=== PATIENT | male | born 1960 | race Caucasian/White ===

== ENCOUNTER 2024-08-16 08:02 | Inpatient (IN) | payer BC, OTHER ==
[~2024-08-16] VITALS: Ht 185.4 cm; Wt 113.9 kg
--- NOTE | 2024-08-16 08:09 | ECG ---
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
--- NOTE | 2024-08-16 08:22 | ED.PDOC ---
History of Present Illness HPI Comments 63-year-old male with no reported PMHx presents with a chief complaint of chest pain x onset last night. Patient states that his pain is localized to his left chest, nonradiating, describes as heaviness/pressure, and is intermittent in timing. Patient mentions that he had pressure last night, but that it went away on its own and he was able to sleep. Patient mentions that while on his way down the [place] the chest pressure began again and was more intense than last night. Patients advised patient to be checked out and patient arrived to the ER. No other symptoms or modifying factors present at this time. Chief Complaint: Chest Pain Time Seen by MD: 08:11 Reviewed Notes: Medications, Allergies Allergies: Coded Allergies: Avocado (Verified Allergy, Unknown, 08/16/24) Information Source: Patient Mode of Arrival: Ambulatory Severity: Moderate Timing: Hours Duration: Since onset Prehospital treatment: None Past Medical History PAST MEDICAL HISTORY: Denies Surgical History (Other): KNEE REPLACEMENT Family History Family History: Reviewed,noncontributory to illness Social History Smoker: Non-Smoker Alcohol: Denies ETOH Use Drugs: Denies Drug Use Lives In: Home Constitutional: denies: chills, diaphoresis, fatigue, fever, malaise, sweats, weakness, others EENTM: denies: blurred vision, double vision, ear bleeding, ear discharge, ear drainage, ear pain, ear ringing, eye pain, eye redness, hearing loss, mouth pain, mouth swelling, nasal discharge, nose bleeding, nose congestion, nose pa in, photophobia, tearing, throat pain, throat swelling, voice changes, others Respiratory: denies: cough, hemoptysis, orthopnea, SOB at rest, shortness of breath, SOB with excertion, stridor, wheezing, others Cardiovascular: reports: chest pain, irregular heart beat; denies: dizzy spells, diaphoresis, Dyspnea on exertion, edema, left arm pain, lightheadedness, palpitations, PND, syncope, others Gastrointestinal: denies: abdomen distended, abdominal pain, blood streaked bowels, constipated, diarrhea, dysphagia, difficulty swallowing, hematemesis, melena, nausea, poor appetite, poor fluid intake, rectal bleeding, rectal pain, vomiting, others Genitourinary: denies: burning, dysuria, flank pain, frequency, hematuria, incontinence, penile discharge, penile sore, pain, testicle pain, testicle swelling, urgency, others Neurological: denies: dizziness, fainting, headache, left sided numbness, left sided weakness, numbness, paresthesia, pre-existing deficit, right sided numbness, right sided weakness, seizure, speech problems, tingling, tremors, weakness, others Musculoskeletal: denies: back pain, gout, joint pain, joint swelling, muscle pain, muscle stiffness, neck pain, others Integumetry: denies: bruises, change in color, change in hair/nails, dryness, laceration, lesions, lumps, rash, wounds, others Allergic/Immunocompromised: denies: Difficulty Healing, Frequent Infections, Hives, Itching, others Hematologic/Lymphatic: denies: anemia, blood clots, easy bleeding, easy bruising, swollen glands, others Endocrine: denies: excessive hunger, excessive sweating, excessive thirst, excessive urination, flushing, intolerance to cold, intolerance to heat, unexplained weight gain, unexplained weight loss, others Psychiatric: denies: anxiety, bipolar disorder, depression, hopeless, panic disorder, schizophrenia, sleepless, suicidal, others All Other Systems: Reviewed and Negative Physical Exam General Appearance: Moderate Distress, Normal HEENT: Normal ENT Inspection, Pharynx Normal, TMs Normal Neck: Full Range of Motion, Non-Tender, Normal, Normal Inspection Respiratory: Chest Non-Tender, Lungs Clear, No Accessory Muscle Use, No Re spiratory Distress, Normal Breath Sounds Cardiovascular: No Edema, No JVD, No Murmur, No Gallop, Normal Peripheral Pulses, Tachycardia Breast Exam: Deferred Gastrointestinal: No Organomegaly, Non Tender, No Pulsatile Mass, Normal Bowel Sounds, Soft Genitalia: Deferred Pelvic: Deferred Rectal: Deferred Extremities: No calf tenderness, Normal capillary refill, Normal inspection, Normal range of motion, Non-tender, No pedal edema Musculoskeletal : Apperance: Normal Neurologic: Alert, duct layer helper II-XII nml as Tested, No Motor Deficits, Normal Affect, Normal Mood, No Sensory Deficits Cerebellar Function: NOT DONE Reflexes: NOT DONE Skin: Dry, Normal Color, Warm Peripheral Pulses: 3+ Radial (R), 3+ Radial (L) Lymphatic: No Adenopathy Was a procedure done? Was a procedure done?: No EKG EKG : Pulse Rate (adult): 160 [place]: Normal Cardiac Rhythm: ST Block: None Hypertrophy: None ST: Normal Differential Dx Considerations may include: Coronary artery disease Electrolyte imbalance X-Ray, Labs, Meds, VS Vital Signs Date Time Temp Pulse Resp B/P (MAP) Pulse Ox O2 Delivery O2 Flow Rate FiO2 08/16/24 08:22 160 08/16/24 08:08 160 08/16/24 08:05 97.9 160 22 183/116 (138) 98 97.9 161/122 (135) Lab Test 08/16/24 08:10 Range/Units White Blood Count 7.9 4.4-10.8 10^3/uL Red Blood Count 5.41 4.5-5.90 10^6/uL Hemoglobin 17.0 13.5-17.5 g/dL Hematocrit 48.6 41.0-53.0 % Mean Corpuscular Volume 90.0 80.0-100.0 fL Mean Corpuscular Hemoglobin 31.4 28.0-32.0 pg Mean Corpuscular Hemoglobin Concent 34.9 32.0-36.0 g/dL Red Cell Distribution Width 13.6 11.8-14.3 % Platelet Count 195 140-450 10^3/uL Mean Platelet Volume 7.4 6.9-10.8 fL Neutrophils (%) (Auto) 66.9 37.0-80.0 % Lymphocytes (%) (Auto) 19.3 10.0-50.0 % Monocytes (%) (Auto) 6.6 0.0-12.0 % Eosinophils (%) (Auto) 5.9 0.0-7.0 % Basophils (%) (Auto) 1.3 0.0-2.0 % Neutrophils # (Auto) 5.3 1.6-8.6 10 ^3/uL Lymphocytes # (Auto) 1.5 0.4-5.4 10 ^3/uL Monocytes # (Auto) 0.5 0-1.3 10 ^3/uL Eosinophils # (Auto) 0.5 0-0.8 10 ^3/uL Basophils # (Auto) 0.1 0-0.2 10 ^3/uL Nucleated Red Blood Cells 0.1 % Sodium Level 142 136-145 mmol/L Potassium Level 4.2 3.5-5.1 mmol/L Chloride Level 108 H 98-107 mmol/L Carbon Dioxide Level 24 20-31 mmol/L Anion Gap 10 5-15 Blood Urea Nitrogen 16 9-23 mg/dL Creatinine 1.25 0.700-1.30 mg/dL Glomerular Filtration Rate Calc 66 >90 mL/min BUN/Creatinine Ratio 12.8 10.0-20.0 Serum Glucose 111 H 74-106 mg/dL Calcium Level 11.3 H 8.7-10.4 mg/dL Troponin I High Sensitivity 8 </=54 ng/L Current Medications Medications (Trade) Dose Ordered Sig/Katerin Route Start Time Stop Time Status Last Admin Aspirin 325 mg ONCE ONCE PO 08/16/24 08:30 08/16/24 08:31 DC 08/16/24 08:59 Adenosine (Adenosine) 6 mg ONCE ONCE IV 08/16/24 08:30 08/16/24 08:31 DC 08/16/24 08:35 Amiodarone HCl 100 ml @ 600 mls/hr ONCE ONCE IV 08/16/24 08:45 08/16/24 08:54 DC 08/16/24 08:49 Patient alert. Complaining of chest discomfort. EKG does show tachycardia. Answering questions. Blood pressure elevated. Does not take any medications. WBC within normal limits. Hemoglobin within normal limits. Was given labetalol. When adenosine was given his underlying rhythm was a flutter. Started amiodarone. Explained to the patient about his heart condition. Echocardiogram. Cardiology consultation. Continue cardiac monitoring. Time of 1ST Reevaluation: 08:41 Reevaluation 1ST: Unchanged Patient Education/Counseling: Diagnosis, Treatment Family Education/Counseling: No Family Present Departure 1 Departure Time of Disposition: 08:39 Impression: Primary Impression: Atrial fibrillation Qualified Codes: I48.0 - Paroxysmal atrial fibrillation Additional Impression: Atrial flutter Qualified Codes: I48.92 - Unspecified atrial flutter Disposition: ADMITTED INPATIENT Admit to: Med Surg Condition: Guarded Comments 08:11 - SPOKE WITH THE PATIENT DURING INITIAL ASSESSMENT AND INFORMED HIM THAT DUE TO HIS PRESENTATION HE WILL BE STAYING WITH US IN THE HOSPITAL AND WILL BE ADMITTED FOR A CARDIOLOGY WORK-UP. PATIENT IS IN AGREEMENT WITH THE PLAN. Critical Care Note Critical Care Time?: Yes (90 min-critical care time only) Critical care comment: Tachycardia adenosine changes rhythm to fibrillation started amiodarone Stability Stability form required: No Heart Score Heart Score: Heart Score Response (Comments) Value History Slightly Suspicious 0 EKG Normal 0 Age 45-64 1 Risk Factors 1 or 2 risk factors 1 Troponin Normal limit 0 Total 2 I personally scribed for MONY ELLIOTT MD ([email or web address]) on 08/16/24 at 08:22. Electronically submitted by Matt Cano ([email or web address]). MONY ELLIOTT MD August 16, 2024 08:22
[2024-08-16 08:32] LABS: Basophils # (auto) 0.1 10 ^3/uL (0-0.2); Basophils % (auto) 1.3 % (0.0-2.0); Eosinophils # (auto) 0.5 10 ^3/uL (0-0.8); Eosinophils % (auto) 5.9 % (0.0-7.0); Hematocrit 48.6 % (41.0-53.0); Lymphocytes # (auto) 1.5 10 ^3/uL (0.4-5.4); Lymphocytes % (auto) 19.3 % (10.0-50.0); Mean Corpuscular Hemoglobin 31.4 pg (28.0-32.0); Mean Corpuscular Hgb Conc. 34.9 g/dL (32.0-36.0); Monocytes # (auto) 0.5 10 ^3/uL (0-1.3); Monocytes % (auto) 6.6 % (0.0-12.0); Neutrophils # (auto) 5.3 10 ^3/uL (1.6-8.6); Neutrophils % (auto) 66.9 % (37.0-80.0); Nucleated Red Blood Cells % 0.1 %; Platelet Count (auto) 195 10^3/uL (140-450); Red Blood Cells 5.41 10^6/uL (4.5-5.90); Red Cell Distribution Width 13.6 % (11.8-14.3); White Blood Cell 7.9 10^3/uL (4.4-10.8)
[2024-08-16] MEDS: ADENOSINE 6 MG/2 ML INJ IV ONE (08:35)
[2024-08-16] MEDS: AMIODARONE BOLUS KIT 100 ML IV ONE ×2 (08:49→08:50)
[2024-08-16 08:50] LABS: Potassium 4.2 mmol/L (3.5-5.1); Sodium 142 mmol/L (136-145)
[2024-08-16 08:51] LABS: Anion Gap 10 (5-15); Carbon Dioxide 24 mmol/L (20-31)
[2024-08-16 08:56] LABS: BUN/Creatinine Ratio 12.8 (10.0-20.0); Blood Urea Nitrogen 16 mg/dL (9-23)
[2024-08-16 08:57] LABS: Calcium 11.3 mg/dL (8.7-10.4); Chloride 108 mmol/L (98-107); Glucose 111 mg/dL (74-106)
[2024-08-16] MEDS: AMIODARONE 360mg/200mL PREMIX 200 ML IV ONE ×2 (08:59→09:15)
[2024-08-16] MEDS: ASPirin 325 MG TAB PO ONE (08:59)
--- NOTE | 2024-08-16 09:03 | DVH ---
EXAM: XY CHEST PORTABLE Indication: sob Technique: Single frontal view of the chest was obtained Comparison: None FINDINGS: Lines and Tubes: None Lungs: No focal consolidation. Pleura: No effusion. No pneumothorax. Cardiomediastinal contours: Unremarkable Bones: No acute osseous abnormality. IMPRESSION: No acute cardiopulmonary disease.
[2024-08-16] MEDS ORDERED: NITROGLYCERIN 0.4 MG SL TAB SL PRN (09:45)
[2024-08-16] MEDS ORDERED: HYDROcodone-ACET 5/325MG TAB PO PRN (09:45)
[2024-08-16] MEDS ORDERED: MORPHINE SULFATE INJ 2 MG/ml SYRG IV PRN ×2 (09:45)
[2024-08-16] MEDS ORDERED: DOCUSATE SOD 100 MG CAP PO PRN (09:45)
--- NOTE | 2024-08-16 09:54 | DVHHP2 ---
History of Present Illness Reason for Visit: Chest Pain History of Present Illness Dashawn Colunga is a 63-year-old male with past medical history of hyperlipidemia, and GERD, who came to the hospital for chest pressure. Patient states he has been experiencing intermittent chest pressure for a couple months. He is in the process of being evaluated for left hip surgery. Part of surgical clearance was an EKG, it showed RBBB. Patient also mention that he has been experiencing the intermittent chest pressure. He was then referred to cardiology for cardiac clearance. Patient was seen by cardiology, has an ECHO scheduled, patient unable to complete treadmill stress test, so he has nuclear medicine stress test scheduled, insurance denied left heart cath. Patient states the left chest pressure has been worsening. The pressure is worse with activity, and he has associated shortness of breath with activity. He states he has noticed he is more fatigues over the last couple of months and needs to rest more with activity. Has a family history of heart disease, father had CABG and maternal grandmother had heart disease. Patient came into the ER with a wide complex tachycardia. He was given adenosine, which decreased his rate for a short period, then it went into atrial fibrillation with RVR 120-140's. Cardiovascular: hyperipidemia GI: GERD Past Surgical History: Other (right and left knee, right leg) Smoke: No ALCOHOL: none Drugs: None Lives: with Family Domestic Violence: Neg Review of Systems Constitutional: No: Fever, Chills, Sweats, Weakness, Malaise, Other Eyes: No: Pain, Vision change, Conjunctivae inflammation, Eyelid inflammation, Other, Redness ENT: No: Ear pain, Ear discharge, Nose pain, Nose discharge, Nose congestion, Mouth pain, Mouth swelling, Throat pain, Throat swelling, Other Respiratory: No: Cough, Dry, Shortness of breath, SOB with excertion, Wheezing, Hemoptysis, Pleuritic Pain, Sputum, Wheezing, Other Cardiovascular: Chest Pain (left chest pressure); No: Palpitations, Orthopnea, Paroxysmal Noc. Dyspnea, Edema, Lt Headedness, Other Gastrointestinal: No: Nausea, Vomiting, Abdominal Pain, Diarrhea, Constipation, Melena, Hematochezia, Other Genitourinary: No Dysuria, No Frequency, No Incontinence, No Hematuria, No Retention, No Other Musculoskeletal: No: other, neck pain, shoulder pain, arm pain, back pain, hand pain, leg pain, foot pain Skin: No: Rash, Lesions, Jaundice, Bruising, Other Neurological: No: Weakness, Numbness, Incoordination, Change in speech, Confusion, Seizures, Other Allergies: Coded Allergies: Avocado (Verified Allergy, Unknown, 08/16/24) Exam Vital Signs Vital Signs Date Time Temp Pulse Resp B/P (MAP) Pulse Ox O2 Delivery O2 Flow Rate FiO2 08/16/24 09:34 158 08/16/24 08:05 97.9 22 183/116 (138) 98 97.9 161/122 (135) General Appearance: Alert, Oriented X3, Cooperative, moderate distress HEENT: Atraumatic, PERRLA Respiratory: Clear to auscultation, Normal air movement Cardiovascular: Normal S1, Normal S2, No murmurs, Other (was atrail fibrillation, converted to SR) Abdominal: Normal bowel sounds, Soft, No tenderness, No hepatospenomegaly Extremities: No clubbing, No cyanosis, No edema, Normal pulses, No tenderness/swelling Skin: No rashes, No breakdown, No significant lesion Neuro: Normal gait, Normal speech, Strength at 5/5 X4 ext, Normal tone, Other (left hip pain) Psych/Mental Status: Mental status NL, Mood NL Labs/Xrays Labs Test 08/16/24 09:13 08/16/24 08:10 Range/Units White Blood Count 7.9 4.4-10.8 10^3/uL Red Blood Count 5.41 4.5-5.90 10^6/uL Hemoglobin 17.0 13.5-17.5 g/dL Hematocrit 48.6 41.0-53.0 % Mean Corpuscular Volume 90.0 80.0-100.0 fL Mean Corpuscular Hemoglobin 31.4 28.0-32.0 pg Mean Corpuscular Hemoglobin Concent 34.9 32.0-36.0 g/dL Red Cell Distribution Width 13.6 11.8-14.3 % Platelet Count 195 140-450 10^3/uL Mean Platelet Volume 7.4 6.9-10.8 fL Neutrophils (%) (Auto) 66.9 37.0-80.0 % Lymphocytes (%) (Auto) 19.3 10.0-50.0 % Monocytes (%) (Auto) 6.6 0.0-12.0 % Eosinophils (%) (Auto) 5.9 0.0-7.0 % Basophils (%) (Auto) 1.3 0.0-2.0 % Neutrophils # (Auto) 5.3 1.6-8.6 10 ^3/uL Lymphocytes # (Auto) 1.5 0.4-5.4 10 ^3/uL Monocytes # (Auto) 0.5 0-1.3 10 ^3/uL Eosinophils # (Auto) 0.5 0-0.8 10 ^3/uL Basophils # (Auto) 0.1 0-0.2 10 ^3/uL Nucleated Red Blood Cells 0.1 % Sodium Level 142 136-145 mmol/L Potassium Level 4.2 3.5-5.1 mmol/L Chloride Level 108 H 98-107 mmol/L Carbon Dioxide Level 24 20-31 mmol/L Anion Gap 10 5-15 Blood Urea Nitrogen 16 9-23 mg/dL Creatinine 1.25 0.700-1.30 mg/dL Glomerular Filtration Rate Calc 66 >90 mL/min BUN/Creatinine Ratio 12.8 10.0-20.0 Serum Glucose 111 H 74-106 mg/dL Calcium Level 11.3 H 8.7-10.4 mg/dL EXAM: XY CHEST PORTABLE FINDINGS: Lines and Tubes: None Lungs: No focal consolidation. Pleura: No effusion. No pneumothorax. Cardiomediastinal contours: Unremarkable Bones: No acute osseous abnormality. IMPRESSION: No acute cardiopulmonary disease. Assessment/Plan Assessment/Plan Assessment: Supraventricular tachycardia, Atrial fibrillation, Hyperlipidemia, GERD, Plan: Admit to Tele, Cardiology consult, IV amiodarone, ECHO, NPO, Home medications reconciled, Plan discussed with: Patient Date of Service: August 16, 2024 Billing Provider: EDILMA BROWN Common Visit Codes: [id number] INP/OBS CARE (HIGH) EDILMA BROWN August 16, 2024 09:54
[2024-08-16 10:32] LABS: LDL Cholesterol 92 mg/dL (< 100)
[2024-08-16 10:34] LABS: Cholesterol 148 mg/dL (< 200)
[2024-08-16 10:35] LABS: HDL Cholesterol 37 mg/dL (40-59); Triglycerides 180 mg/dL (< 150)
[2024-08-16] MEDS: AMIODARONE 360mg/200mL PREMIX 200 ML IV SCH (15:06)
[2024-08-16] MEDS ORDERED: LANS30CA57 PO (16:00)
[2024-08-16] MEDS ORDERED: ROSU20TA56 PO (16:00)
--- NOTE | 2024-08-16 18:39 | DVHINCON2 ---
Date Seen: August 16, 2024 History of Present Illness 63-year-old male with a past medical history of prediabetes and obesity was admitted due to palpitations, found to be in atrial flutter. He was started on amiodarone after a dose of adenosine and converted to normal rhythm. Patient reports that for the past several months he has been dealing with chest pressure and shortness of breath. 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 He has a family history of coronary artery disease and diabetes. He does not have any allergies to contrast. He does not measure his blood pressure at home. At bedside patient denies chest pain or pressure, shortness of breath, or palpitations. Allergies: Coded Allergies: Avocado (Verified Allergy, Unknown, 08/16/24) Home Meds Reported Medications Lansoprazole (Lansoprazole) 30 Mg Cap, 1 CAP PO DAILY, #30 CAP 5 Refills 08/16/24 Rosuvastatin Calcium (Rosuvastatin Calcium) 20 Mg Tab, 20 MG PO HS, TAB 08/16/24 Current Medications Current Medications Medications (Trade) Dose Ordered Sig/Katerin Route PRN Reason Start Time Stop Time Status Last Admin Acetaminophen/ Hydrocodone Bitart ([place] 5/325MG Tab) 1 tab Q4HP PRN PO MODERATE PAIN (4-6 PAIN SCALE) 08/16/24 09:45 Ondansetron HCl (Zofran) 4 mg Q4HP PRN IV NAUSEA / VOMITING 08/16/24 09:45 Docusate Sodium (Colace Capsule) 100 mg BIDPRN PRN PO FOR CONSTIPATION 08/16/24 09:45 Acetaminophen (Tylenol Tablet) 650 mg Q6HP PRN PO PAIN SCALE 1-3 OR TEMP>100.4 08/16/24 09:45 Morphine Sulfate 2 mg Q4HPRN PRN IV SEVERE PAIN (7-10 PAIN SCALE) 08/16/24 09:45 Nitroglycerin (Ntrostat Sublingual) 0.4 mg Q5MINP PRN SL FOR CHEST PAIN 08/16/24 09:45 Morphine Sulfate 2 mg Q30M PRN IV FOR CHEST PAIN 08/16/24 09:45 Pantoprazole Sodium (Protonix Tablet) 40 mg DAILY PO 08/17/24 10:00 Atorvastatin Calcium (Lipitor) 40 mg HS PO 08/16/24 22:00 Vital Signs Vital Signs Date Time Temp Pulse Resp B/P (MAP) Pulse Ox O2 Delivery O2 Flow Rate FiO2 08/16/24 16:00 60 13 151/87 (108) 97 08/16/24 10:00 97.5 97.5 08/16/24 08:20 Room Air* 0 21 Physical Exam HEENT examination is otherwise unremarkable with atraumatic and normocephalic skull. Orally well hydrated. Trachea central neck supple. No jugular distention no bruits. Lungs reveal good air entry no rales or rhonchi. Heart exam reveals regular S1-S2 with no obvious additional heart sounds. Abdominal examination is otherwise unremarkable. Extremities are well-perfused without clubbing cyanosis, or edema. Labs/Diagnostic Data Labs Test 08/16/24 09:13 08/16/24 08:10 Range/Units Troponin I High Sensitivity 7 </=54 ng/L White Blood Count 7.9 4.4-10.8 10^3/uL Red Blood Count 5.41 4.5-5.90 10^6/uL Hemoglobin 17.0 13.5-17.5 g/dL Hematocrit 48.6 41.0-53.0 % Mean Corpuscular Volume 90.0 80.0-100.0 fL Mean Corpuscular Hemoglobin 31.4 28.0-32.0 pg Mean Corpuscular Hemoglobin Concent 34.9 32.0-36.0 g/dL Red Cell Distribution Width 13.6 11.8-14.3 % Platelet Count 195 140-450 10^3/uL Mean Platelet Volume 7.4 6.9-10.8 fL Neutrophils (%) (Auto) 66.9 37.0-80.0 % Lymphocytes (%) (Auto) 19.3 10.0-50.0 % Monocytes (%) (Auto) 6.6 0.0-12.0 % Eosinophils (%) (Auto) 5.9 0.0-7.0 % Basophils (%) (Auto) 1.3 0.0-2.0 % Neutrophils # (Auto) 5.3 1.6-8.6 10 ^3/uL Lymphocytes # (Auto) 1.5 0.4-5.4 10 ^3/uL Monocytes # (Auto) 0.5 0-1.3 10 ^3/uL Eosinophils # (Auto) 0.5 0-0.8 10 ^3/uL Basophils # (Auto) 0.1 0-0.2 10 ^3/uL Nucleated Red Blood Cells 0.1 % Sodium Level 142 136-145 mmol/L Potassium Level 4.2 3.5-5.1 mmol/L Chloride Level 108 H 98-107 mmol/L Carbon Dioxide Level 24 20-31 mmol/L Anion Gap 10 5-15 Blood Urea Nitrogen 16 9-23 mg/dL Creatinine 1.25 0.700-1.30 mg/dL Glomerular Filtration Rate Calc 66 >90 mL/min BUN/Creatinine Ratio 12.8 10.0-20.0 Serum Glucose 111 H 74-106 mg/dL Hemoglobin A1c 5.9 H <5.7 % A1C Calcium Level 11.3 H 8.7-10.4 mg/dL Triglycerides Level 180 H < 150 mg/dL Cholesterol Level 148 < 200 mg/dL LDL Cholesterol 92 < 100 mg/dL HDL Cholesterol 37 L 40-59 mg/dL Thyroid Stimulating Hormone (TSH) 3.95 0.55-4.78 uIU/mL Plan/Recommendation # atrial flutter # abnormal EKG # chest pressure # prediabetes # dyslipidemia # obesity Atrial flutter -baseline heart rate seems to be in the 60s, recommend discharging patient off of any antiarrhythmic or BB/CCB -recommend discharge on Eliquis or Xarelto. Although his CHADS-VASc score is 0, he previously had a diabetic range A1c meaning score of 1. I recommend anticoagulation with EP follow up who can decide on care home plan. Should there be a recurrence he will be a great candidate for ablation. Patient already has appointment with EP. -sleep study as outpatient Chest pressure several months of complaints with family history and his own risk factors, will opt for angiogram as preferred by patient and his . risks were discussed and other options including stress testing was offered. -Dr. Cisneros has accepted this patient for angiogram tomorrow -echo prelim read, WNL -further recommendations per results Dyslipidemia Prediabetes -discharge on crestor and metformin Plan discussed with: Patient, Spouse NYHA Physical activity limitations: NA Date of Service: August 16, 2024 Billing Provider: ART WATSON MD Cardiology Common Codes: [id number] INP/OBS CARE (High) ART WATSON MD August 16, 2024 18:39
--- NOTE | 2024-08-16 18:51 | ECG ---
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
--- NOTE | 2024-08-16 18:51 | ECG ---
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
[2024-08-16] MEDS: ENOXAPARIN SOD 120 MG/0.8 ML SYRINGE SC ONE (19:04)
[2024-08-16 19:30] VITALS: PULSE 58; RESP 16; O2SAT 97
[2024-08-16] MEDS ORDERED: ATORVASTATIN 20 MG TAB PO SCH (22:00)
[2024-08-16] MEDS: ATORVASTATIN 20 MG TAB PO SCH (22:27)
[2024-08-17] VITALS (15 sets, daily range): BP systolic 138–173; BP diastolic 61–105; PULSE 54–70; RESP 11–18; TEMP 97.1–98.4; O2SAT 94–99
[2024-08-17 04:52] LABS: Urine Bacteria None Seen /hpf (None Seen)
[2024-08-17 05:04] LABS: Urine Blood Negative /uL (Negative); Urine Clarity Clear (Clear); Urine Color Yellow (Yellow); Urine Mucus FEW (None Seen); Urine Protein, UAD Negative (Negative); Urine Specific Gravity 1.022 (1.001-1.035); Urine Squamous Epithelial Cell None Seen /hpf (<5); Urine Urobilinogen Normal (Negative); Urine WBC 8 /HPF (0-3); Urine WBC Clumps PRESENT /hpf (None Seen)
[2024-08-17 06:07] LABS: Basophils # (auto) 0.1 10 ^3/uL (0-0.2); Basophils % (auto) 1.3 % (0.0-2.0); Eosinophils # (auto) 0.5 10 ^3/uL (0-0.8); Eosinophils % (auto) 6.9 % (0.0-7.0); Hematocrit 44.5 % (41.0-53.0); Hemoglobin 15.4 g/dL (13.5-17.5); Lymphocytes # (auto) 1.4 10 ^3/uL (0.4-5.4); Mean Corpuscular Hemoglobin 31.2 pg (28.0-32.0); Mean Corpuscular Hgb Conc. 34.7 g/dL (32.0-36.0); Mean Corpuscular Volume 89.9 fL (80.0-100.0); Monocytes # (auto) 0.4 10 ^3/uL (0-1.3); Monocytes % (auto) 5.5 % (0.0-12.0); Neutrophils # (auto) 4.8 10 ^3/uL (1.6-8.6); Neutrophils % (auto) 67.3 % (37.0-80.0); Nucleated Red Blood Cells % 0.1 %; Platelet Count (auto) 186 10^3/uL (140-450); Red Blood Cells 4.95 10^6/uL (4.5-5.90); Red Cell Distribution Width 13.7 % (11.8-14.3); White Blood Cell 7.1 10^3/uL (4.4-10.8)
[2024-08-17 06:11] LABS: INR 1.03 (0.9-1.15); Partial Thromboplastin Time 27.8 SEC (24.5-34.5); Prothrombin Time 10.9 sec (9.3-11.8)
[2024-08-17 06:14] LABS: Albumin 4.5 g/dL (3.2-4.8); Alkaline Phosphatase 77 U/L (46-116); Anion Gap 9 (5-15); Aspartate Aminotransferase 20 U/L (13-40); BUN/Creatinine Ratio 14.8 (10.0-20.0); Bilirubin, Total 0.6 mg/dL (0.2-1.0); Blood Urea Nitrogen 18 mg/dL (9-23); Carbon Dioxide 26 mmol/L (20-31); Potassium 4.1 mmol/L (3.5-5.1); Sodium 142 mmol/L (136-145); Total Protein 6.4 g/dL (5.7-8.2)
[2024-08-17 06:20] LABS: Alanine Aminotransferase 44 U/L (7-40); Chloride 107 mmol/L (98-107); Glucose 115 mg/dL (74-106)
--- NOTE | 2024-08-17 07:56 | DVHSR ---
APPROVED REPORT EXAM: Two-dimensional and M-mode echocardiogram with Doppler and color Doppler. Blood Pressure: 183/116 mmHg INDICATION SVT A fib LV function Structural RISK FACTORS Height: 6'0", Weight: 250 DIMENSIONS LVDd5.0 (3.8-5.7cm)LA (2D)3.6 (1.9-4.0cm)Aortic Root3.8 (2.0-3.7cm) LVDs3.4 (2.5-4.0cm)LA (MM) (1.9-4.0cm)Aortic Cusp Exc2.3 (1.5-2.0cm) EF (%) 60.0 (55-70%)Rt. Atrium3.9 (1.9-4.0cm)Asc. Aorta cm IVSd1.1 (0.7-1.1cm)RV (D)3.9 (1.8-2.4cm) PWd1.0 (0.7-1.1cm) Mitral Valve MitralMitral Stenosis E wave0.54m/sMV Mean GR.mmHg A wave0.79m/sMV Peak GR.mmHg E/A ratio0.72D MVAcm2 DECEL [id number] 1/2 [place] Aortic Valve Aortic ValveAortic Stenosis V10.73m/Jamia Mean GR.3mmHg V21.16m/Jamia Peak GR.5mmHg LVOT Diameter2.5 (1.8-2.4cm)Doppler AVA3.09cm2 Pulmonic Valve V21.12m/s Conclusion Sinus rhythm. Concentric LVH with aortic root enlargement. Dilation of the sinuses of Valsalva. Valves appear to be structurally normal. EF of 60% with normal RV function. Doppler reveals mild TR. No pericardial effusion masses or vegetations.
[2024-08-17] MEDS: PANTOPRAZOLE 40 MG TAB PO SCH (09:51)
[2024-08-17] MEDS: ACETAMINOPHEN 325 MG TAB PO PRN (10:42)
[2024-08-17] MEDS: IODIXANOL 320MG/ML 100ML BTL IV ONE (13:02)
[2024-08-17] MEDS: fentaNYL CITRATE 100 MCG/2 ML VL ONE (13:12)
[2024-08-17] MEDS: VERAPAMIL 2.5MG/ML INJ 2ML VIAL IV ONE (13:12)
[2024-08-17] MEDS: LIDOCAINE 2%HCL (LOCAL ANESTH.) INJ 20ML MDV ONE (13:12)
[2024-08-17] MEDS: HEPARIN SODIUM (PORCINE) 5000 UNITS/ML 1ML VIAL ONE (13:12)
[2024-08-17] MEDS: SODIUM CHL 0.9% 0 ML ONE (13:12)
[2024-08-17] MEDS: ANGIOMAX 250 MG VIAL IV ONE (13:12)
[2024-08-17] MEDS: MIDAZOLAM HCL 2MG/2ML 2ml VIAL (1mg/ml) ONE (13:12)
[2024-08-17] MEDS: ONDANSETRON HCL 4 MG/2 ML VIAL IV PRN (14:12)
--- NOTE | 2024-08-17 14:19 | DVHOP2 ---
Operative Report - 2 Report Details Date: 08/17/24 Preop Diagnosis: CAD. SVT. Postop Diagnosis: Normal coronary arteries. Surgeon: Sarah Cisneros MD Anesthesiologist: Conscious sedation. Anesthesia: Mac, Local Consent: The patient was informed of the risks and benefits of the procedure. These include but are not limited to complications of anesthesia, postoperative infection, incomplete relief of symptoms, recurrence of symptoms, damage to blood vessels, nerves and tendons, deep venous thrombosis, pulmonary embolism and possible need for repeat surgery in the future. Complications: No complications. Estimated Blood Loss: 2 cc. Findings: Normal coronaries. Normal ejection fraction. Normal LV function. Indications for Surgery: Chest pain. Abnormal troponins. Name of Procedure Performed Left heart catheterization. Bilateral cine coronary angiography. Left ventriculography. Procedure Details Procedure Details: Prior local anesthesia with 2% lidocaine to the right wrist and full informed consent obtained patient was prepped and draped in usual fashion followed by p lacement of six Turkish sheath into the right radial artery through which a multipurpose catheter and a three five EBU guide was used for evaluation of right and left coronary ostia and ventriculography without complications. Hemodynamics: Aortic blood pressure was 110/70. End-diastolic pressure was 12. There was no gradient across the aortic valve on pullback. Coronary anatomy: RCA is a large dominant vessel it is normal in its proximal mid and distal segments. PDA and posterolateral branches are normal. The left main is large and normal. Left anterior descending is large and normal. No stenosis in the proximal mid or distal segments. Diagonals and septals are normal. Circumflex is codominant. It is large. Two large obtuse marginal branches are free of significant disease as is the circumflex proper. Ventriculography in the JIMENEZ projection shows an EF of 55-60% Impression: For one normal left ventricular end-diastolic pressure at rest. 2. Normal ejection fraction. 3. Normal coronary arteries. Recommendations: Continue current medical therapy. Risk factor modification to continue. Condition Good Disposition Date of Service: August 17, 2024 Billing Provider: SARAH CISNEROS Sr., MD Cardiology Common Codes: [id number] INP/OBS CARE (High) Cardiology Procedure Codes: 09272-[id number] VESSEL W/I VASC FAM, 82782-WCAN ADD CORONARY BRANCH, 93949-SJSB HEART CATH W/INTRA INJ SARAH CISNEROS Sr., MD August 17, 2024 14:19
[2024-08-17] MEDS: LABETALOL HCL 20 MG/4 ML VL IV PRN (16:19)
--- NOTE | 2024-08-17 18:35 | DVHPN2 ---
Subjective In bed, no chest pain Changes from previous H/P or p: No Changes Eyes: No Pain, No Vision change, No Conjunctivae inflammation, No Eyelid inflammation, No Other, No Redness ENT: No Ear pain, No Ear discharge, No Nose pain, No Nose discharge, No Nose congestion, No Mouth pain, No Mouth swelling, No Throat pain, No Throat swelling, No Other Cardiovascular: Chest Pain (left chest pressure); No Palpitations, No Orthopnea, No Paroxysmal Noc. Dyspnea, No Edema, No Lt Headedness, No Other Respiratory: No Cough, No Dry, No Shortness of breath, No SOB with excertion, No Wheezing, No Hemoptysis, No Pleuritic Pain, No Sputum, No Other Gastrointestinal: No Nausea, No Vomiting, No Abdominal Pain, No Diarrhea, No Constipation, No Melena, No Hematochezia, No Other Genitourinary: No Dysuria, No Frequency, No Incontinence, No Hematuria, No Retention, No Other Musculoskeletal: No other, No neck pain, No shoulder pain, No arm pain, No back pain, No hand pain, No leg pain, No foot pain Skin: No Rash, No Lesions, No Jaundice, No Bruising, No Other Objective Vitals Vital Signs Date Time Temp Pulse Resp B/P (MAP) Pulse Ox O2 Delivery O2 Flow Rate FiO2 08/17/24 18:03 97.1 66 16 161/101 (121) 94 97.1 08/17/24 07:55 Room Air* 0 21 Intake/Output Intake and Output 08/17/24 07:00 Intake Total 365.51 ml Balance 365.51 ml Intake IV Total 365.51 ml General Appearance: Alert Lungs: Clear to auscultation Cardiovascular: Regular rate, Normal S1, Normal S2 Medications Current Medications Medications Dose Ordered Sig/Katerin Route Start Time Stop Time Status Last Admin Dose Admin Acetaminophen/ Hydrocodone Bitart 1 tab Q4HP PRN PO 08/16/24 09:45 Ondansetron HCl 4 mg Q4HP PRN IV 08/16/24 09:45 08/17/24 14:12 4 MG Docusate Sodium 100 mg BIDPRN PRN PO 08/16/24 09:45 Acetaminophen 650 mg Q6HP PRN PO 08/16/24 09:45 08/17/24 10:42 650 MG Morphine Sulfate 2 mg Q4HPRN PRN IV 08/16/24 09:45 Nitroglycerin 0.4 mg Q5MINP PRN SL 08/16/24 09:45 Morphine Sulfate 2 mg Q30M PRN IV 08/16/24 09:45 Pantoprazole Sodium 40 mg DAILY PO 08/17/24 10:00 Atorvastatin Calcium 40 mg HS PO 08/16/24 22:00 08/16/24 22:27 40 MG Flecainide Acetate 50 mg Q12HR PO 08/17/24 22:00 Metoprolol Succinate 25 mg DAILY PO 08/18/24 10:00 Labetalol HCl 5 mg Q2HPRN PRN IV 08/17/24 14:45 08/17/24 16:19 5 MG Apixaban 5 mg BID PO 08/17/24 22:00 Laboratory Results Laboratory Tests 08/17/24 05:19 Chemistry Test 08/17/24 05:19 Albumin 4.5 g/dL (3.2-4.8) Calcium Level 10.0 mg/dL (8.7-10.4) Magnesium Level 2.2 mg/dL (1.6-2.6) Total Protein 6.4 g/dL (5.7-8.2) Coagulation Test 08/17/24 05:19 Prothrombin Time 10.9 sec (9.3-11.8) Prothrombin Time INR 1.03 (0.9-1.15) Activated Partial Thromboplast Time 27.8 SEC (24.5-34.5) LFT Test 08/17/24 05:19 Alanine Aminotransferase (ALT) 44 U/L (7-40) H Alkaline Phosphatase 77 U/L (46-116) Aspartate Amino Transferase (AST) 20 U/L (13-40) Total Bilirubin 0.6 mg/dL (0.2-1.0) Urinalysis Test 08/17/24 04:48 Urine Color Yellow (Yellow) Urine Clarity Clear (Clear) Urine pH 6.0 (5.0-9.0) Urine Specific [place] 1.022 (1.001-1.035) Urine Protein Negative (Negative) Urine Ketones Negative (Negative) Urine Blood Negative /uL (Negative) Urine Nitrite Negative (Negative) Urine Bilirubin Negative (Negative) Urine Urobilinogen Normal mg/dL (Negative) Urine Leukocyte Esterase Negative /uL (Negative) Urine RBC 3 /hpf (0 - 3) Urine WBC Clumps Present /hpf (None Seen) Urine Microscopic WBC 8 /HPF (0-3) H Urine Squamous Epithelial Cells None seen /hpf (<5) Urine Calcium Oxalate Crystals Few (None Seen) Urine Bacteria None seen /hpf (None Seen) Urine Mucus Few (None Seen) Urine Glucose Normal mg/dL (Normal) Assessment/Plan Assessment/Plan Supraventricular tachycardia, Atrial fibrillation, Hyperlipidemia, GERD, Continue IV amiodarone drip per cardiology will take to cath Plan discussed with: Patient Date of Service: August 17, 2024 Billing Provider: LENO POWELL MD Common Visit Codes: [id number] INP/OBS CARE(HIGH) LENO POWELL MD August 17, 2024 18:34
[2024-08-17] MEDS: FLECAINIDE ACETATE 50 MG TAB PO SCH (21:50)
[2024-08-17] MEDS: APIXABAN 5 MG TAB PO SCH (21:51)
[2024-08-18 05:00] VITALS: BP 161/97; PULSE 62; RESP 18; TEMP 97.5; O2SAT 98
[2024-08-18 07:18] LABS: Alkaline Phosphatase 76 U/L (46-116); Anion Gap 11 (5-15); Calcium 10.1 mg/dL (8.7-10.4); Carbon Dioxide 25 mmol/L (20-31); Chloride 104 mmol/L (98-107); Potassium 3.9 mmol/L (3.5-5.1); Sodium 140 mmol/L (136-145); Total Protein 6.5 g/dL (5.7-8.2)
[2024-08-18 07:19] LABS: Albumin 4.6 g/dL (3.2-4.8); BUN/Creatinine Ratio 13.5 (10.0-20.0); Blood Urea Nitrogen 15 mg/dL (9-23)
[2024-08-18 07:20] LABS: Aspartate Aminotransferase 18 U/L (13-40); Bilirubin, Total 0.9 mg/dL (0.2-1.0)
[2024-08-18 07:21] LABS: Alanine Aminotransferase 42 U/L (7-40); Glucose 132 mg/dL (74-106)
[2024-08-18 08:00] VITALS: PULSE 60; PULSE 61; RESP 15
[2024-08-18] MEDS: METOPROLOL SUCCINATE XL 50 MG TAB PO SCH (08:41)
[2024-08-18 08:56] VITALS: BP 159/78; PULSE 60; RESP 15; TEMP 97.6; O2SAT 99
--- NOTE | 2024-08-18 10:45 | DVHPN2 ---
Consult Progress Note Date Seen: August 18, 2024 Subjective Review of Systems: CVS:Normal, RESPIRATORY:Normal, NEURO:Normal Objective vital signs Vital Sign Date Time Temp Pulse Resp B/P (MAP) Pulse Ox O2 Delivery O2 Flow Rate FiO2 08/18/24 08:56 97.6 60 15 159/78 (105) 99 97.6 08/17/24 20:35 Room Air* 0 21 Total Intake and Output 08/17/24 08/17/24 08/18/24 15:00 23:00 07:00 Intake Total 16.66 ml 200 ml Balance 16.66 ml 200 ml medications Current Medications Medications Dose Ordered Sig/Katerin Route Start Time Stop Time Status Last Admin Dose Admin Acetaminophen/ Hydrocodone Bitart 1 tab Q4HP PRN PO 08/16/24 09:45 Ondansetron HCl 4 mg Q4HP PRN IV 08/16/24 09:45 08/17/24 14:12 4 MG Docusate Sodium 100 mg BIDPRN PRN PO 08/16/24 09:45 Acetaminophen 650 mg Q6HP PRN PO 08/16/24 09:45 08/18/24 05:21 650 MG Morphine Sulfate 2 mg Q4HPRN PRN IV 08/16/24 09:45 Nitroglycerin 0.4 mg Q5MINP PRN SL 08/16/24 09:45 Morphine Sulfate 2 mg Q30M PRN IV 08/16/24 09:45 Pantoprazole Sodium 40 mg DAILY PO 08/17/24 10:00 08/18/24 08:37 40 MG Atorvastatin Calcium 40 mg HS PO 08/16/24 22:00 08/17/24 21:50 40 MG Flecainide Acetate 50 mg Q12HR PO 08/17/24 22:00 08/18/24 08:38 50 MG Metoprolol Succinate 25 mg DAILY PO 08/18/24 10:00 08/18/24 08:41 25 MG Labetalol HCl 5 mg Q2HPRN PRN IV 08/17/24 14:45 08/18/24 05:15 5 MG Apixaban 5 mg BID PO 08/17/24 22:00 08/18/24 08:37 5 MG Examination: LUNGS:Normal, CVS:Normal (monitor technician reviewed with no further tachyarrhytmias), NEURO:Normal laboratory and microbiology Laboratory Tests 08/18/24 05:34 08/17/24 05:19 Test 08/18/24 05:34 Range/Units Serum Glucose 132 H 74-106 mg/dL Problem List/Assessment/Plan Problem List/Assessment/Plan # Paroxysmal atrial flutter, now NSR # Chest pressure s/p LHC without evidence of CAD # Abnormal EKG # Prediabetes # Dyslipidemia # Obesity Plan/Recommendation (Dr. Cisneros) * Paroxysmal atrial flutter -Echocardiogram revealed LVEF of 60%. Concentric LVH with aortic root enlargement. -Continue low dose metoprolol XL and low-dose Flecainide, follow parameters to hold medications if HR <60 bpm (currently NSR with no further tachyarrhythmias). -Recommend DOAC therapy, Eliquis BID. -CHADS-VASc Score is 2 points. HAS-BLED Score is 1 point. -Outpatient EP evaluation for possible cardiac ablation. -Outpatient event monitor. -Sleep study as outpatient. * Dyslipidemia/Prediabetes -Discharge on Crestor and metformin Follow-up with Dr. Crandall on 08/30/2024 at 1100. There is no further cardiac workup indicated at this time. Thank you for allowing us to participate in this patient's care. This medical document was created using an electronic medical record system with voice recognition software and computerized dictation system. Although this document has been carefully reviewed, there might still be some phonetic and typographical errors. Occasional wrong-word or ``sound-alike substitutions may have occurred due to the inherent limitations of voice recognition software. These areas are purely typographical due to imperfections of the software programs and do not reflect any compromise in the patient's medical care. Please read the chart carefully and recognize, using context, where these substitutions have occurred. Plan discussed with: Patient, Spouse, Other Date of Service: August 18, 2024 Billing Provider: MADAN HAM Cardiology Common Codes: [id number] HOSP CARE(High MADAN HAMP August 18, 2024 10:45
[2024-08-18] MEDS: CHLORTHALIDONE 25 MG TAB PO ONE (12:01)
[2024-08-18 13:00] VITALS: BP 154/81; PULSE 63; RESP 17; TEMP 97.8; O2SAT 98
[2024-08-18] MEDS ORDERED: FLE50T PO (13:31)
[2024-08-18] MEDS ORDERED: APIX5TAB PO (13:31)
[2024-08-18] MEDS ORDERED: METO-6 PO (13:31)
[2024-08-18] MEDS ORDERED: CHLO25TA2 PO (13:31)
[2024-08-18 15:30] VITALS: BP 159/78; PULSE 60; TEMP 36.6
[2024-08-19] MEDS ORDERED: CHLORTHALIDONE 25 MG TAB PO SCH (08:00)
--- NOTE | 2024-08-22 13:01 | DVHDS2 ---
Discharge Summary Date of Admission August 16, 2024 at 09:32 Date of Discharge: August 18, 2024 Labs/Diagnostic Data: Laboratory Results Test 08/18/24 05:34 08/17/24 05:19 08/17/24 04:48 08/16/24 09:13 Sodium Level 140 mmol/L (136-145) Potassium Level 3.9 mmol/L (3.5-5.1) Chloride Level 104 mmol/L (98-107) Carbon Dioxide Level 25 mmol/L (20-31) Anion Gap 11 (5-15) Blood Urea Nitrogen 15 mg/dL (9-23) Creatinine 1.11 mg/dL (0.700-1.30) Glomerular Filtration Rate Calc 75 mL/min (>90) BUN/Creatinine Ratio 13.5 (10.0-20.0) Serum Glucose 132 mg/dL (74-106) Calcium Level 10.1 mg/dL (8.7-10.4) Total Bilirubin 0.9 mg/dL (0.2-1.0) Aspartate Amino Transferase (AST) 18 U/L (13-40) Alanine Aminotransferase (ALT) 42 U/L (7-40) Alkaline Phosphatase 76 U/L (46-116) Total Protein 6.5 g/dL (5.7-8.2) Albumin 4.6 g/dL (3.2-4.8) White Blood Count 7.1 10^3/uL (4.4-10.8) Red Blood Count 4.95 10^6/uL (4.5-5.90) Hemoglobin 15.4 g/dL (13.5-17.5) Hematocrit 44.5 % (41.0-53.0) Mean Corpuscular Volume 89.9 fL (80.0-100.0) Mean Corpuscular Hemoglobin 31.2 pg (28.0-32.0) Mean Corpuscular Hemoglobin Concent 34.7 g/dL (32.0-36.0) Red Cell Distribution Width 13.7 % (11.8-14.3) Platelet Count 186 10^3/uL (140-450) Mean Platelet Volume 7.4 fL (6.9-10.8) Neutrophils (%) (Auto) 67.3 % (37.0-80.0) Lymphocytes (%) (Auto) 19.0 % (10.0-50.0) Monocytes (%) (Auto) 5.5 % (0.0-12.0) Eosinophils (%) (Auto) 6.9 % (0.0-7.0) Basophils (%) (Auto) 1.3 % (0.0-2.0) Neutrophils # (Auto) 4.8 10 ^3/uL (1.6-8.6) Lymphocytes # (Auto) 1.4 10 ^3/uL (0.4-5.4) Monocytes # (Auto) 0.4 10 ^3/uL (0-1.3) Eosinophils # (Auto) 0.5 10 ^3/uL (0-0.8) Basophils # (Auto) 0.1 10 ^3/uL (0-0.2) Nucleated Red Blood Cells 0.1 % Prothrombin Time 10.9 sec (9.3-11.8) Prothrombin Time INR 1.03 (0.9-1.15) Activated Partial Thromboplast Time 27.8 SEC (24.5-34.5) Magnesium Level 2.2 mg/dL (1.6-2.6) Urine Color Yellow (Yellow) Urine Clarity Clear (Clear) Urine pH 6.0 (5.0-9.0) Urine Specific [place] 1.022 (1.001-1.035) Urine Protein Negative (Negative) Urine Ketones Negative (Negative) Urine Blood Negative /uL (Negative) Urine Nitrite Negative (Negative) Urine Bilirubin Negative (Negative) Urine Urobilinogen Normal mg/dL (Negative) Urine Leukocyte Esterase Negative /uL (Negative) Urine RBC 3 /hpf (0 - 3) Urine WBC Clumps Present /hpf (None Seen) Urine Microscopic WBC 8 /HPF (0-3) Urine Squamous Epithelial Cells None seen /hpf (<5) Urine Calcium Oxalate Crystals Few (None Seen) Urine Bacteria None seen /hpf (None Seen) Urine Mucus Few (None Seen) Urine Glucose Normal mg/dL (Normal) Troponin I High Sensitivity 7 ng/L (</=54) Test 08/16/24 08:10 Hemoglobin A1c 5.9 % A1C (<5.7) Triglycerides Level 180 mg/dL (< 150) Cholesterol Level 148 mg/dL (< 200) LDL Cholesterol 92 mg/dL (< 100) HDL Cholesterol 37 mg/dL (40-59) Thyroid Stimulating Hormone (TSH) 3.95 uIU/mL (0.55-4.78) Other Laboratory Tests 08/18/24 05:34 08/17/24 05:19 Brief Hx & Hospital Course: Dashawn Colunga is a 63-year-old male with past medical history of hyperlipidemia, and GERD, who came to the hospital for chest pressure. Patient states he has been experiencing intermittent chest pressure for a couple months. He is in the process of being evaluated for left hip surgery. Part of surgical clearance was an EKG, it showed RBBB. Patient also mention that he has been experiencing the intermittent chest pressure. He was then referred to cardiology for cardiac clearance. Patient was seen by cardiology, has an ECHO scheduled, patient unable to complete treadmill stress test, so he has nuclear medicine stress test scheduled, insurance denied left heart cath. Patient states the left chest pressure has been worsening. The pressure is worse with activity, and he has associated shortness of breath with activity. He states he has noticed he is more fatigues over the last couple of months and needs to rest more with activity. Has a family history of heart disease, father had CABG and maternal grandmother had heart disease. Patient came into the ER with a wide complex tachycardia. He was given adenosine, which decreased his rate for a short period, then it went into atrial fibrillation with RVR 120-140's. On Amiodarone dripk, changed to flecainide and on eliquis had cath with was wnl will follow up as outpatient for possible ablation Condition at Discharge: Good Final Diagnosis/Problems List SVT Discharge Disposition: Home Discharge Instruct/Medications Diet: Regular Activity: No Restrictions, As Tolerated Follow Up/Referral: PCP in 7 days and cardiology Medications: chlorthalidone, metoprolol, flecainide, eliquis Discharge Statement: "Patient was advised to return to the ER or call 911 if any headaches, dizziness, shortness of breath, chest pain, abdominal pain, bleeding, fevers, or worsening of medical condition. Patient was counseled about treatment plan, medications, possible side effects, patientverbalized understanding. All questions were answered to the best of my ability. This discharge took greater then 30 minutes in planning, reviewing documentation, counseling the patient, and discussing with other team members." ASSESSMENT ASSESSMENT Assessment SVT Date of Service: August 18, 2024 Billing Provider: LENO POWELL MD Common Visit Codes: [id number]-RVL/OBS DISCH DAY >30min LENO POWELL MD August 22, 2024 13:01
== END 2024-08-18 16:00 | disposition home or self-care (01) | DRG 287 ==
LOC: ER 08:02 → OVERFLOW 09:32 → TELE-CENTR 08-17 20:36
PROVIDERS: ADMIT Hospitalist; ATTEND Hospitalist
PROC: 4A023N7 Measurement of Cardiac Sampling and Pressure, Left Heart, Percutaneous Approach (ICD-10-PCS; principal; 2024-08-17)
PROC: B211YZZ Fluoroscopy of Multiple Coronary Arteries using Other Contrast (ICD-10-PCS; 2024-08-17)
PROC: B215YZZ Fluoroscopy of Left Heart using Other Contrast (ICD-10-PCS; 2024-08-17)
DX: I47.10 Supraventricular tachycardia, unspecified (principal); I48.92 Unspecified atrial flutter; Z68.33 Body mass index [BMI] 33.0-33.9, adult; E66.9 Obesity, unspecified; I48.0 Paroxysmal atrial fibrillation; K21.9 Gastro-esophageal reflux disease without esophagitis; E78.5 Hyperlipidemia, unspecified; R73.03 Prediabetes; Z96.659 Presence of unspecified artificial knee joint; I45.10 Unspecified right bundle-branch block; Z83.3 Family history of diabetes mellitus; Z82.49 Family history of ischemic heart disease and other diseases of the circulatory system
CPT/HCPCS: 36415; 71045; 80048; 80053; 80061; 81001; 83036; 83735; 84443; 84484; 85025; 85610; 85730; 93005; 93306; 93458; 96365; 96375; 99152; 99291; 99292; G0378; J0153; J2250; J2405; Q9967

== ENCOUNTER 2025-03-17 14:10 | Emergency (ER) | payer BC ==
[~2025-03-17] VITALS: Ht 182.9 cm; Wt 108.8 kg
[~2025-03-17 14:10] MED LIST: APIX5TAB PO; CHLO25TA2 PO; FLE50T PO; LANS30CA57 PO; METO-6 PO; ROSU20TA56 PO
--- NOTE | 2025-03-17 14:34 | ED.PDOC ---
HPI Comments HPI: 64 year-old male presents to the ED with a chief complaint of palpitations with elevated HR as of 1300 today. Patient reports being admitted at [facility] earlier this year for the same issue, with no abnormalities found. Patient reports being compliant with medication, taking it daily, as prescribed. There are no further complaints or modifying factors at this time. Patient denies symptoms of blurred vision, dizziness, chest pain, weakness, or N/V/D. Initial Vitals BP: 119/74 HR: 134 RR: 16 O2: 98 on RA Temp: 98.8F Past Medical History: Afib, Aflutter Past Surgical History: Denies Social History: Denies Medications: Eliquis, Lexapro, Metoprolol Allergies: Avocado LOTSHAW: WITH THE PATIENT'S WITHOUT ANY OTHER ASSOCIATED SYMPTOMS. PATIENT IS ON ELIQUIS STATES COMPLIANCE. PATIENT ON METOPROLOL. AFIB WITH RVR, TRACE BILATERAL PITTING EDEMA. Men came HPI: Poor Historian. REVIEW OF SYSTEMS: CONSTITUTIONAL: Denies acute: fever, diaphoresis, chills, generalized weakness. HEAD: Denies acute: headache, photophobia Eyes: Denies acute: Double vision, vision loss, eye pain, eye discharge. EARS: Denies acute: tinnitus, hearing loss, ear discharge, ear pain, THROAT: Denies acute: sore throat, swelling, difficulty swallowing , pain with swallowing, change in voice. NECK: Denies acute: neck pain, neck swelling, stiff neck. HEART: Denies acute : LUNGS: Denies acute: SOB, wheezing, cough, hemoptysis ABDOMEN: Denies acute: abdominal pain, Nausea, Vomiting, diarrhea, melena , hematemesis, hematochezia SKIN: Denies acute: rash, redness, lesions, itchiness. EXTREMITIES: Denies acute: calf pain, numbness, tingling, weakness, denies pain in extremity. Denies acute: Low back pain. Neuro: Denies acute: focal neurological deficit, motor or sensory focal neurological deficit, tremors, seizure like activity, confusion, dizziness, change in mental status, loss of bowel or bladder function, cauda equina like symptoms. : Denies acute: dysuria, hematuria, flank pain, increase in urinary frequency. PSYCH: Denies acute: hallucination, suicidal ideation, homicidal ideation. PHYSICAL EXAM: General: -----mild---acute distress, awake and alert. Head: normocephalic, atraumatic. No raccoon's eyes, no tillman sign. Neck: supple, trachea is midline, no swelling. Throat: Normal phonation. Eyes:, no erythema, no purulent discharge, no proptosis, no icterus. Heart: Irregular rate and rhythm consistent with atrial fibrillation with RVR, no significant murmur appreciated. Lungs: no apparent respiratory distress, Able to speak in full sentences. No wheezing, no rhonchi, no crackles. No stridors Clear to auscultation bilaterally. Abdomen: non tender to palpation, non distended, soft, no guarding, no rebound, + bowel sounds. Neuro: Awake, Alert, oriented to name, self, situation, follows commands GCS=15. Speech is normal. Skin: no petechia, no purpura, no cyanosis, non-pale, not jaundice. Lower extremities: --2/4 bilateral - Pitting edema no deformity, no focal swelling, no calf TTP. Makes eye contact. moves all four extremities. Face: no apparent facial droop. Ambulating in the ED independently. ED COURSE: DISCLAIMER: This medical document was created using an electronic medical record system with voice recognition software and computerized dictation system. Although this document has been carefully reviewed, there might still be some phonetic and typographical errors. Occasional wrong-word or "sound-alike" substitutions may have occurred due to the inherent limitations of voice recognition software. These areas are purely typographical due to imperfections of the software programs and do not reflect any compromise in the patient's medical care. Please read the chart carefully and recognize, using context, where these substitutions have occurred. Time Seen by MD: 14:14 Primary Care Provider: ARTURO Reviewed Notes: Medications, Allergies Allergies: Coded Allergies: Avocado (Verified Allergy, Unknown, 08/16/24) Home Meds Active Scripts Metoprolol Succinate (Toprol Xl) 50 Mg Tab, 25 MG PO DAILY for 90 Days, #45 TAB Prov:LENO POWELL MD 08/18/24 Flecainide Acetate (TAMBOCOR TABLET) 50 Mg Tb, 50 MG PO Q12HR for 90 Days, #180 TAB Prov:LENO POWELL MD 08/18/24 Chlorthalidone (Chlorthalidone) 25 Mg Tab, 25 MG PO DAILY@BREAKFAST for 90 Days, #90 TAB Prov:LENO POWELL MD 08/18/24 Apixaban Base (ELIQUIS) 5 Mg Tab, 5 MG PO BID for 90 Days, #180 TAB Prov:LENO POWELL MD 08/18/24 Reported Medications Lansoprazole (Lansoprazole) 30 Mg Cap, 1 CAP PO DAILY, #30 CAP 5 Refills 08/16/24 Rosuvastatin Calcium (Rosuvastatin Calcium) 20 Mg Tab, 20 MG PO HS, TAB 08/16/24 Information Source: Patient Mode of Arrival: Ambulatory Severity: Moderate Timing: Hours Duration: Since onset Associated Signs and Symptoms: Palpitations Past Medical History PAST MEDICAL HISTORY: AFIB Past Medical History (Other): Aflutter Family History Family History: Reviewed,noncontributory to illness Social History Smoker: Non-Smoker Alcohol: Denies ETOH Use Drugs: Denies Drug Use Lives In: Home EKG EKG : Pulse Rate (adult): 146 [place]: Normal Cardiac Rhythm: Afib Block: RBBB Hypertrophy: None ST: Normal Was a procedure done? Was a procedure done?: No CP Differential Dx Differential Diagnosis: A-fib, A-Flutter, Angina Differential Diagnosis: CHF, HTN Essential Differential Diagnosis: Chest Wall Pain, Gastritis X-Ray, Labs, Meds, VS Vital Signs Date Time Temp Pulse Resp B/P (MAP) Pulse Ox O2 Delivery O2 Flow Rate FiO2 03/17/25 19:30 98.0 63 11 126/72 (90) 98 98.0 03/17/25 19:00 63 12 119/74 (89) 97 03/17/25 18:00 67 15 124/78 (93) 97 03/17/25 17:35 72 14 128/78 (95) 03/17/25 15:16 93 03/17/25 14:40 134 16 96 Room Air* 0 21 03/17/25 14:40 98.8 134 16 119/74 (89) 96 98.8 03/17/25 14:34 146 03/17/25 14:30 97.8 91 17 130/55 99 97.8 03/17/25 14:15 146 Lab Test 03/17/25 18:11 03/17/25 16:34 03/17/25 15:17 03/17/25 14:30 Range/Units Troponin I High Sensitivity 14 11 9 </=54 ng/L White Blood Count 5.1 4.4-10.8 10^3/uL Red Blood Count 4.85 4.5-5.90 10^6/uL Hemoglobin 14.9 13.5-17.5 g/dL Hematocrit 42.3 41.0-53.0 % Mean Corpuscular Volume 87.3 80.0-100.0 fL Mean Corpuscular Hemoglobin 30.8 28.0-32.0 pg Mean Corpuscular Hemoglobin Concent 35.3 32.0-36.0 g/dL Red Cell Distribution Width 14.1 11.8-14.3 % Platelet Count 189 140-450 10^3/uL Mean Platelet Volume 7.2 6.9-10.8 fL Neutrophils (%) (Auto) 60.1 37.0-80.0 % Lymphocytes (%) (Auto) 27.3 10.0-50.0 % Monocytes (%) (Auto) 5.7 0.0-12.0 % Eosinophils (%) (Auto) 5.6 0.0-7.0 % Basophils (%) (Auto) 1.3 0.0-2.0 % Neutrophils # (Auto) 3.0 1.6-8.6 10 ^3/uL Lymphocytes # (Auto) 1.4 0.4-5.4 10 ^3/uL Monocytes # (Auto) 0.3 0-1.3 10 ^3/uL Eosinophils # (Auto) 0.3 0-0.8 10 ^3/uL Basophils # (Auto) 0.1 0-0.2 10 ^3/uL Nucleated Red Blood Cells 0.2 % Sodium Level 143 136-145 mmol/L Potassium Level 3.5 3.5-5.1 mmol/L Chloride Level 104 98-107 mmol/L Carbon Dioxide Level 29 20-31 mmol/L Anion Gap 10 5-15 Blood Urea Nitrogen 23 9-23 mg/dL Creatinine 1.20 0.700-1.30 mg/dL Glomerular Filtration Rate Calc 68 >90 mL/min BUN/Creatinine Ratio 19.2 10.0-20.0 Serum Glucose 123 H 74-106 mg/dL Calcium Level 10.3 8.7-10.4 mg/dL Magnesium Level 1.8 1.6-2.6 mg/dL Total Bilirubin 0.3 0.2-1.0 mg/dL Aspartate Amino Transferase (AST) 31 13-40 U/L Alanine Aminotransferase (ALT) 52 H 7-40 U/L Alkaline Phosphatase 98 46-116 U/L B-Type Natriuretic Peptide 29.43 0-100 pg/mL Total Protein 6.5 5.7-8.2 g/dL Albumin 4.5 3.2-4.8 g/dL Urine Color Colorless Yellow Urine Clarity Clear Clear Urine pH 6.5 5.0-9.0 Urine Specific [place] 1.005 1.001-1.035 Urine Protein Negative Negative Urine Ketones Negative Negative Urine Blood 2+ H Negative /uL Urine Nitrite Negative Negative Urine Bilirubin Negative Negative Urine Urobilinogen Normal Negative mg/dL Urine Leukocyte Esterase Negative Negative /uL Urine RBC 1 0 - 3 /hpf Urine Microscopic WBC 2 0-3 /HPF Urine Squamous Epithelial Cells None seen <5 /hpf Urine Bacteria None seen None Seen /hpf Urine Glucose Normal Normal mg/dL Urine Opiates Screen Neg NEGATIVE Urine Fentanyl Screen Neg NEGATIVE Urine Barbiturates Screen Neg NEGATIVE Urine Phencyclidine Screen Neg NEGATIVE Urine Amphetamines Screen Neg NEGATIVE Urine Benzodiazepines Screen Neg NEGATIVE Urine Cocaine Screen Neg NEGATIVE Urine Cannabinoids Screen Neg NEGATIVE [place] [address] Ph: [phone] DIAGNOSTIC IMAGING Diagnostic Imaging Report : [id number] Signed PATIENT: MAISHA ALBERT ACCT: [id number] UNIT: [id number] : 1960 LOC: ER ROOM / BED: / AGE / SEX: 64 / M ADM STATUS: REG ER SERVICE [id number] ORDERING PHYSICIAN: KAMALJIT DOMINGO DO PROCEDURE(s): CXRP - CHEST PORTABLE REASON: AFIB ORDER NUMBER(s): [id number], ACCESSION NUMBER(s): [id number] INDICATION: AFIB TECHNIQUE: Frontal view of the chest. COMPARISON: XY CHEST PORTABLE on DOS: 08/16/24 FINDINGS: . The heart and mediastinal contours are grossly unremarkable. There is no evidence of pleural disease. The lungs are clear. The bony structures of the chest are intact without fracture. IMPRESSION: 1. No evidence of acute disease. ATED BY: ASHLIE MORALES MD DICTATED DATE/TIME: 03/17/251536 SIGNED BY: ASHLIE MORALES MD SIGNED DATE/TIME: 03/17/251536 CC: Time of 1ST Reevaluation: 15:16 Reevaluation 1ST: Unchanged Patient Education/Counseling: Diagnosis, Treatment Family Education/Counseling: No Family Present Departure 1 Departure Time of Disposition: 15:07 Impression: Primary Impression: Atrial fibrillation with RVR Disposition: ADMITTED INPATIENT Admit to: [facility] Condition: Guarded Discharged With: Self Critical Care Note Critical Care Time?: No Heart Score Heart Score: Heart Score Response (Comments) Value History Slightly Suspicious 0 EKG Normal 0 Age 45-64 1 Risk Factors 1 or 2 risk factors 1 Troponin N/A 0 Total 2 I personally scribed for KAMALJIT DOMINGO DO ([email or web address]) on 03/17/25 at 14:34. Electronically submitted by Ofelia Shepherd ([employer]). I personally scribed for KAMALJIT DOMINGO DO ([email or web address]) on 03/17/25 at 14:35. Electronically submitted by Ofelia Shepherd ([employer]). I personally scribed for KAMALJIT DOMINGO DO ([email or web address]) on 03/17/25 at 20:09. Electronically submitted by Mona Quintana ([facility]). KAMALJIT DOMINGO DO Mar 17, 2025 14:34
[2025-03-17 14:40] VITALS: PULSE 134; RESP 16; O2SAT 96
[2025-03-17 15:22] LABS: Hematocrit 42.3 % (41.0-53.0); Hemoglobin 14.9 g/dL (13.5-17.5); Mean Corpuscular Hemoglobin 30.8 pg (28.0-32.0); Mean Corpuscular Volume 87.3 fL (80.0-100.0); Nucleated Red Blood Cells % 0.2 %
--- NOTE | 2025-03-17 15:39 | DVH ---
INDICATION: AFIB TECHNIQUE: Frontal view of the chest. COMPARISON: XY CHEST PORTABLE on DOS: 08/16/24 FINDINGS: . The heart and mediastinal contours are grossly unremarkable. There is no evidence of pleural disease. The lungs are clear. The bony structures of the chest are intact without fracture. IMPRESSION: 1. No evidence of acute disease.
[2025-03-17 15:47] LABS: Albumin 4.5 g/dL (3.2-4.8); Alkaline Phosphatase 98 U/L (46-116); Anion Gap 10 (5-15); BUN/Creatinine Ratio 19.2 (10.0-20.0); Calcium 10.3 mg/dL (8.7-10.4); Carbon Dioxide 29 mmol/L (20-31); Chloride 104 mmol/L (98-107); Magnesium 1.8 mg/dL (1.6-2.6); Sodium 143 mmol/L (136-145); Total Protein 6.5 g/dL (5.7-8.2)
[2025-03-17 15:48] LABS: Bilirubin, Total 0.3 mg/dL (0.2-1.0)
[2025-03-17 15:49] LABS: Alanine Aminotransferase 52 U/L (7-40); Blood Urea Nitrogen 23 mg/dL (9-23); Glucose 123 mg/dL (74-106); Potassium 3.5 mmol/L (3.5-5.1)
[2025-03-17] MEDS: METOPROLOL TARTRATE 1MG/1ML-5ML VIAL IV ONE (17:30)
[2025-03-17 18:49] LABS: Urine Protein, UAD Negative (Negative)
[2025-03-17 18:58] LABS: Amphetamine Screen, Urine Neg (NEGATIVE); Barbiturate Scree,Urine Neg (NEGATIVE); Benzodiazephine Screen, Urine Neg (NEGATIVE); Cannabinoid Screen, Urine Neg (NEGATIVE); Cocaine Screen, Urine Neg (NEGATIVE); Opiate Scree,Urine Neg (NEGATIVE); Phencyclidine Screen, Urine Neg (NEGATIVE)
[2025-03-17 19:30] VITALS: BP 126/72; PULSE 63; RESP 11; TEMP 98; O2SAT 98
[2025-03-17] MEDS ORDERED: DOCUSATE SOD 100 MG CAP PO PRN (20:00)
[2025-03-17] MEDS ORDERED: HYDROcodone-ACET 5/325MG TAB PO PRN (20:00)
[2025-03-17] MEDS ORDERED: ONDANSETRON HCL 4 MG/2 ML VIAL IV PRN (20:00)
[2025-03-17] MEDS ORDERED: ACETAMINOPHEN 325 MG TAB PO PRN (20:00)
[2025-03-17] MEDS ORDERED: ATORVASTATIN 20 MG TAB PO SCH (22:00)
[2025-03-17] MEDS ORDERED: APIXABAN 5 MG TAB PO SCH (22:00)
[2025-03-17] MEDS ORDERED: METOPROLOL TARTRATE 25 MG TAB PO SCH (22:00)
[2025-03-17] MEDS ORDERED: SODIUM CHLOR 0.9% PF (SALINE LOCK) 10ML VIAL/SYR IV SCH (22:00)
--- NOTE | 2025-03-19 10:07 | ECG ---
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
--- NOTE | 2025-03-19 10:07 | ECG ---
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
--- NOTE | 2025-03-19 23:32 | ECG ---
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
== END 2025-03-17 19:57 | disposition left against medical advice (07) ==
LOC: ER 14:10
DX: I48.20 Chronic atrial fibrillation, unspecified (principal); R06.02 Shortness of breath; Z79.899 Other long term (current) drug therapy
CPT/HCPCS: 36415; 71045; 80053; 80307; 81001; 83735; 83880; 84484; 85025; 93005